=== PATIENT | male | born 1995 | race American Indian/Alaskan Native ===

== ENCOUNTER 2018-04-16 10:53 | Day surgery (SDC) | payer OTHER ==
[2018-03-02 22:05] VITALS: BMI 22.8
[2018-04-16] MEDS ORDERED: ceFAZolin 1 gm in NS 1 GM/100 ML BAG IVPB ONE (13:22)
[2018-04-16] MEDS ORDERED: Propofol 10 mg/ml Inj (20 ML) ONE (13:33)
[2018-04-16] MEDS ORDERED: Midazolam 2 MG/2 ML VIAL ONE (13:33)
[2018-04-16] MEDS ORDERED: Bupivacaine HCl 0.25% PF (10 ml) Inj ONE (13:34)
[2018-04-16] MEDS ORDERED: Lidocaine Hydrochloride 5 ML INJ ONE ×2 (13:34→13:38)
[2018-04-16] MEDS ORDERED: Morphine 4 MG/ML VIAL ONE (14:14)
[2018-04-16] MEDS ORDERED: HYDROmorphone 0.5 mg/0.5 ml ISec IVP PRN (14:20)
[2018-04-16] MEDS ORDERED: Sodium Chloride 0.9% 1,000 ML IV ONE (14:50)
[2018-04-16] MEDS ORDERED: Lactated Ringer's 1,000 ML IV ONE (14:50)
[2018-04-16 15:23] VITALS: O2SAT 100
[2018-04-16 16:20] VITALS: BP 110/70; PULSE 68; RESP 18; TEMP 97
--- NOTE | 2018-04-16 16:40 | PCM.SURG1 ---
Surgeon's Initial Post Op Note - Surgeon's Notes Surgeon: Jay Pablo Ingredient Specialist: none Type of Anesthesia: General LMA Pre-Operative Diagnosis: R testicular tumor Operative Findings: same. 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 Intra-operative testicular ultrasound. Excision of R appendix testis. Excision of R testicular mass Specimen/Specimens Removed: testiculsar mass Estimated Blood Loss: EBL {In ML}: 10 Blood Products Given: N/A Drains Used: No Drains Post-Op Condition: Good Date of Surgery/Procedure: 04/16/18 Time of Surgery/Procedure: 14:40
--- NOTE | 2018-04-20 10:00 | OP ---
PROCEDURE DATE: 04/16/2018 POSTOPERATIVE DIAGNOSIS: Right testicular mass. POSTOPERATIVE DIAGNOSIS: Right testicular mass. PROCEDURE: Right scrotal exploration. Right testicular ultrasound. Excision of right appendix testis. Excision of right testicular mass. OPERATING SURGEON: Catalina Pablo MD DESCRIPTION OF PROCEDURE: Procedure as follows. The patient received perioperative antibiotics. Anesthesia was provided by the anesthesiologist. The genitalia and abdomen prepped and draped in sterile fashion. A transverse incision was made overlying the right hemiscrotum. Incision was extended through skin and through subcutaneous and scrotal wall layers down to the level to the vaginalis. Hemostasis was achieved using electrocautery. The tunica vaginalis was incised in a transverse direction. The scrotal contents were delivered. The testicle was inspected. There was noted to be approximately 1-cm nodule on the tunica albuginea. This was a yellow nodule which appeared superficial and exophytic with a pale, yellow, not smooth surface, with some excrescences. The epididymis was normal. The appendix testis was identified. Intraoperative testicular ultrasound was performed using the small probe. The testicular ultrasound identified. There is mass on the surface of testicle without evidence of any other masses within the testicle and without evidence of deep penetration of this mass. The appendix epididymis was excised and sent for pathologic examination. The testicular mass involving the superior pole of the testicle in its anterolateral direction and involving tunica vaginalis was excised by sharp dissection. The specimen was sent for frozen section pathologic analysis. Additionally, a deeper margin of the tissue below the nodule was sent as well. This tissue appeared to be normal seminiferous tissue. The hemostasis was achieved using electrocautery. The tunica vaginalis was reapproximated with a continuous suture of 4-0 chromic. Hemostasis was complete. The testicle was returned into its normal anatomic position within the scrotum. The scrotal wound was inspected for hemostasis which was complete. The scrotal wound was then closed in two layers with a continuous locking suture of 3-0 chromic, followed by interrupted skin sutures of 3-0 chromic. A sterile dressing, compressive dressing, and scrotal support were applied. The patient tolerated the procedure without complication. Catalina Pablo MD
== END 2018-04-16 17:37 | disposition home or self-care (01) ==
LOC: C.SDS 10:53
PROVIDERS: ATTEND Urology
DX: C62.11 Malignant neoplasm of descended right testis (principal)
CPT/HCPCS: 54512; 88309; 88331; J0690; J2250; J2270; J2704; J3010; J7030